=== PATIENT | male | born 1995 | race Two or more races ===

== ENCOUNTER 2025-02-19 07:54 | Emergency (ER) | payer BC ==
[~2025-02-19] VITALS: Ht 185.4 cm; Wt 195.0 kg
[2025-02-19] MEDS ORDERED: AZITHROMYCIN 200 MG/5 ML 15 ML ONE (09:32)
[2025-02-19] MEDS: AZITHROMYCIN 300 MG/15 ML BOTTLE PO ONE (09:44)
[2025-02-19] MEDS ORDERED: loperamide PO (09:46)
[2025-02-19 09:57] VITALS: BP 140/75
[2025-02-19] MEDS ORDERED: AZIT200S PO (10:32)
[2025-02-19 10:44] VITALS: BP 143/72; O2SAT 98
[2025-02-24] MEDS ORDERED: VANC125C11 PO (09:11)
== END 2025-02-19 10:46 | disposition home or self-care (01) ==
LOC: ER 07:54
DX: A04.9 Bacterial intestinal infection, unspecified (principal); E66.01 Morbid (severe) obesity due to excess calories; K52.9 Noninfective gastroenteritis and colitis, unspecified; Z68.43 Body mass index [BMI] 50.0-59.9, adult
CPT/HCPCS: 86625; 87046; 89055; A4606; A4663; Q0144